=== PATIENT | female | born 2000 | race Caucasian/White ===

== ENCOUNTER 2019-12-14 18:51 | Emergency (ER) | payer OTHER, SELFPAY ==
--- NOTE | ~2019-12-14 | CT_ITS ---
EXAMINATION: CT abdomen pelvis w con EXAM DATE: 12/14/2019 20:37 INDICATION: Left lower quadrant pain. TECHNIQUE: Spiral CT of the abdomen and pelvis was performed following intravenous injection of 100 m L Omnipaque 350. Axial, coronal and sagittal images were reviewed. The dose-length product (DLP) fo r this examination was 180.08 mGy-cm. The exposure was tailored according to patient size (auto mA e xposure control), and iterative reconstruction (ASIR) was used as additional dose reduction technique . There is no prior study for comparison. FINDINGS: Mild nonspecific periportal edema. The liver, spleen, adrenal glands and pancreas are unre markable. Gallbladder is unremarkable. No biliary obstruction. Several small regions of heterogene ous bilateral renal cortical enhancement, correlate with urinalysis for possible bilateral pyelonephr itis. No hydronephrosis. Enlarged left gonadal vein, possible pelvic congestion syndrome. The bladd er is unremarkable. There is no retroperitoneal or pelvic lymphadenopathy. The appendix is normal. The stomach and small bowel are unremarkable. There is expected amount of c olonic stool. No free intraperitoneal gas. The heart is normal in size. There are no pericardial or pleural effusions. The lung bases are unremarkable. There is mild thoracolumbar dextroscoliosis . IMPRESSION: 1. Small regions of bilateral heterogeneous renal cortical enhancement, possible pyelonephritis. Vasc ulopathy less likely. Correlate with urinalysis. 2. Mild nonspecific periportal edema. Reviewed, dictated and finalized at location A. IMPRESSION: 1. Small regions of bilateral heterogeneous renal cortical enhancement, possibl e pyelonephritis. Vasculopathy less likely. Correlate with urinalysis. 2. Mild nonspecific periportal edema.
[2019-12-14 18:57] VITALS: BP 135/72; RESP 18; TEMP 37.7; O2SAT 98
--- NOTE | 2019-12-14 19:21 | ED.ABDPAIN ---
HPI - Abdominal Pain General Chief Complaint: Abdominal Pain Stated Complaint: abd pain Time Seen by Provider: 12/14/19 19:14 History of Present Illness HPI narrative: Patient presents with her boyfriend for left-sided abdominal pain since 3 AM. She has never had pain like this before. She is holding her left flank with her left hand. She says she has no pain if she holds perfectly still but it is a 7-8 if she is walking. She had her tonsils out a week ago, and had a temperature of 102 at home before arrival. She has nausea and a poor appetite, but no vomiting diarrhea or constipation. 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 She does not smoke, drinks very little, and does not do drugs. Her only surgery is her tonsillectomy. MD elicited complaint: abdominal pain and flank pain Pertinent past history: none Onset (ago): hour(s) Pain Consistency: intermittent Location: LLQ Severity: moderate Radiation: none Migration to: no migration Exacerbating factors: movement Relieving factors: rest Associated symptoms: nausea and fever Treatments prior to arrival: other (None) Related Data Patient : No Home Medications Medication Instructions Recorded Confirmed oxycodone 5 mg PO Q4-6H PRN 12/14/19 12/14/19 Allergies Allergy/AdvReac Type Severity Reaction Status Date / Time No Known Allergies Allergy Verified 08/17/19 18:39 Review of Systems Review of Systems: Narrative: CONSTITUTIONAL: Denies chills, or sweats. EYES: Denies visual changes, redness, or discharge. ENT: Denies rhinorrhea, congestion, or otalgia. She still has a sore throat from her recent tonsillectomy. CARDIOVASCULAR: Denies chest pain, palpitations, or edema. RESPIRATORY: Denies cough or dyspnea. GASTROINTESTINAL: Denies vomiting, or diarrhea. GENITOURINARY: Denies dysuria or hematuria. SKIN: Denies rash or itching. MUSCULOSKELETAL: Denies back pain, joint pain, or myalgia. NEUROLOGIC: Denies headache, numbness, or weakness. PSYCHIATRIC: Denies anxiety or depression. All systems reviewed & are unremarkable except as noted in HPI and below Constitutional: Constitutional: Reports fever(s) Gastrointestinal: Gastrointestinal: Reports abdominal pain and Reports nausea Genitourinary: Genitourinary: Reports no additional female genitourinary complaints Integumentary/Breasts: Comments: Previous breast infection has resolved. [facility] Past Medical History Medical History History of mastitis Surgical History Surgical History History of tonsillectomy Social History Social History (Updated 12/14/19 @ 19:25 by Anna Trujillo MD) Smoking status: Never smoker Alcohol intake: current Substance use: never Gender identity (if verbalized by the patient): Female Exam Narrative: Exam Narrative: GENERAL: Well-appearing, well-nourished, and in no acute distress. HEAD: Normocephalic, atraumatic. EYES: PERRLA and EOMI. ENT: Nares clear, no rhinorrhea or epistaxis. Mucous membranes moist. NECK: Supple. CHEST: Clear to auscultation. No respiratory distress. HEART: Regular rate and rhythm. No murmur heard. Normal peripheral pulses. ABDOMEN: Soft, nontender, nondistended, normal active bowel sounds. EXTREMITIES: Normal range of motion. No edema. SKIN: Warm, dry, no rash. NEURO: No focal deficits. Alert and oriented x3. PSYCH: Normal mood and affect. Course Reevaluation(s) Reevaluation #1: Went back in to see the patient and her boyfriend at 2056. She is feeling better and ready to go home. I recommended that she drink more water and car pick up driver her antibiotics tomorrow. She is still breast-feeding her 6-month-old. We will give Macrobid 100 mg twice daily which is safe with breast-feeding. Date: 12/14/19 Time: 20:57 Vital Signs Vital signs: Vital Signs Temperature 99.8 F H 12/14/19 18:57 Respiratory Rate 18
[2019-12-14] MEDS: SODIUM CHLORIDE 0.9% IV 1,000 ML 500 ML IV CONT (19:27)
[2019-12-14 20:04] LABS: Basophils Percent Auto 0.4 % (0.2-1.2); Hematocrit 35.5 % (37.0-47.0); Hemoglobin 11.9 g/dL (12.0-15.0); Immature Granulocyte Absolute 0.03 K/mm3 (0.00-0.031); Immature Granulocyte Percent A 0.3 % (0-0.5); Lymphocytes Absolute Auto 1.03 K/mm3 (0.9-3.2); Lymphocytes Percent Auto 10.2 % (18.3-44.2); Mean Corpuscular HGB Conc 33.5 g/dl (32-36); Mean Corpuscular Hemoglobin 30.6 pg (26-34); Mean Corpuscular Volume 91.3 fl (80-100); Mean Platelet Volume 9.8 fl (7.4-10.4); Monocytes Absolute Auto 0.6 K/mm3 (0.1-0.6); Monocytes Percent Auto 6.1 % (2.6-8.5); Neutrophils Absolute Auto 8.4 K/mm3 (1.3-6.7); Platelet Count Result 235 k/mm3 (150-375); Red Blood Count 3.89 M/mm3 (4.2-5.4); Red Cell Distribution Width 12.9 % (11.5-14.5); White Blood Count 10.1 K/mm3 (4.5-10.0)
[2019-12-14 20:11] LABS: Add Urine Microscopic? YES; Appearance Urine Cloudy (Clear); Bacteria Urine 2+ /hpf; Bilirubin Urine Negative (Negative); Blood Urine Negative (Negative); Color Urine Yellow (Yellow); Glucose Urine UA Negative (Negative); Ketones Urine 1+ mg/dL (Negative); Leukocyte Esterase Ur 3+ LEU/UL (Negative); Mucus Urine Heavy /lpf; Nitrate Urine Positive (Negative); Protein Urine 1+ mg/dL (Negative); Specific Grav Ur 1.015 (1.001-1.035); Squamous Epithelial Cell Urine Few /hpf (Few); Urobilinogen Urine Negative mg/dL (<2.0); WBC Urine >75 /hpf
[2019-12-14 20:17] LABS: Alanine Aminotransferase 10 U/L (4-35); Albumin Level 4.4 g/dL (3.5-5.1); Alkaline Phosphatase 105 U/L (38-126); Aspartate Amino Transferase 19 U/L (14-36); Bilirubin,Total 0.8 mg/dL (0.2-1.3); Blood Urea Nitrogen 10 mg/dL (7-17); Calcium 8.6 mg/dL (8.4-10.2); Carbon Dioxide 27 mmol/L (22-30); Chloride 99 mmol/L (98-107); Estimated CRCL calculation 90 ml/min; Estimated Glomerular Filt Rate > 60; Glucose 102 mg/dL (65-105); Lipase 47 U/L (23-300); Potassium 3.2 mmol/L (3.4-5.0); Sodium 134 mmol/L (137-145)
== END 2019-12-14 21:19 | disposition home or self-care (01) ==
PROVIDERS: Emergency Medicine Emergency Medical Services; Emergency Provider Emergency Medicine; PCP Obstetrics & Gynecology
DX: N12 Tubulo-interstitial nephritis, not specified as acute or chronic (principal)
CPT/HCPCS: 36415; 74177; 80053; 81001; 81025; 83690; 85025; 87077; 87086; 87088; 87186; 96361; 96365; 99284; J0696; J7030; Q9967

== ENCOUNTER 2023-06-25 11:11 | Emergency (ER) | payer OTHER, MEDICAID, SELFPAY ==
[2023-06-25 11:28] VITALS: BP 107/62; PULSE 120; RESP 16; TEMP 38; O2SAT 99
--- NOTE | 2023-06-25 11:39 | ED.SKABFB ---
HPI - Skin/Abscess/Foreign Bdy General Chief complaint: Skin/Abscess/Foreign Body Stated complaint: breast issue Time Seen by Provider: 06/25/23 11:39 Source: patient Mode of arrival: ambulatory Limitations: no limitations History of Present Illness HPI narrative: 22 y/o female presented for c/o redness and tenderness to left breast for 2 days. Endorses hx mastitis and states this feels similar. Pt is 15mo old and denies any other complications. 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 Endorses nausea. Denies draiange, sob, wheezing, cp, palpitations, vomiting or fever. Related Data Allergies Allergy/AdvReac Type Severity Reaction Status Date / Time No Known Allergies Allergy Verified 06/25/23 11:14 Review of Systems Review of Systems: CONSTITUTIONAL: Denies body aches, fever, chills, or sweats. EYES: Denies visual changes, redness, or discharge. ENT: Denies rhinorrhea, congestion CARDIOVASCULAR: Denies chest pain, palpitations, or edema. RESPIRATORY: Denies cough or dyspnea. GASTROINTESTINAL: Denies abdominal pain, nausea, vomiting, or diarrhea. SKIN: reports red, warm, tender left breast MUSCULOSKELETAL: Denies back pain, joint pain, or myalgia. NEUROLOGIC: Denies headache, numbness, tingling, or weakness. [facility] Past Medical History Medical History (Updated 06/25/23 @ 12:49 by Lamar Garcia, MARTÍNEZ) No pertinent past medical history Comments At time of signature, I have reviewed and agree with nursing past medical, surgical, social and family history unless otherwise noted. Please see nursing chart for further information. There is no relevant family history pertinent to the presenting complaint Exam Narrative: GENERAL: Well-appearing HEAD: Normocephalic, atraumatic. EYES: conjunctivae clear, and EOMI. ENT: Mucous membranes moist. Oropharynx without edema, erythema or lesions. NECK: Supple. No lymphadenopathy CHEST: Clear to auscultation. HEART: Regular rate and rhythm. SKIN: Warm, dry. Left lateral breast with mild erythema, warmth, and tenderness; not circumferential. c/w mastitis. No induration, active drainage, or fluctuance. Skin texture and nipple/areola appear normal. NEURO: Alert and oriented x3. Chest: Chest/axillae images: 1. area of erythema, warmth, and tenderness Course Course Emergency Course: Patient is aware of diagnosis, understands and agrees to treatment plan. Anticipatory guidance given. Patient agrees to follow-up as directed and is aware of reasons to seek care at the emergency department. Portions of this record may have been created with voice recognition software Level of Care: Express Care Visit Vital Signs Vital signs: Vital Signs Temperature 100.4 F H 06/25/23 11:28 Pulse Rate 120 H 06/25/23 11:28 Respiratory Rate 16 06/25/23 11:28 Blood Pressure 107/62 06/25/23 11:28 Pulse Oximetry 99 06/25/23 11:28 Oxygen Delivery Room Air 06/25/23 11:28 Temperature 100.4 F H 06/25/23 11:28 Pulse Rate 120 H 06/25/23 11:28 Respiratory Rate 16 06/25/23 11:28 Blood Pressure 107/62 06/25/23 11:28 Pulse Oximetry 99 06/25/23 11:28 Oxygen Delivery Room Air 06/25/23 11:28 Reviewed MDM - Skin/Abscess/Foreign Bdy MDM Narrative Medical decision making narrative: Discussed physical exam findings c/w mastitis. Advised supportive measures and signs/symptoms to go to the ER. Pt is appropriate for outpt treatment and f/u. Instructed patient to go to nearest ER immediately for any worsening symptoms including but not limited to: fever, pain, redness, trouble breathing, or any symptoms concerning to the patient. Differential Diagnosis Differential diagnosis: Likely abscess of skin or subcutaneous tissue, urticaria, herpes zoster, cellulitis and contact dermatitis Discharge Plan Discharge Clinical Impression: Mastitis Patient Disposition: Home, Self-Care Condition: Stable Instructions: Antibiotic Form, Mastitis
== END 2023-06-25 12:04 | disposition home or self-care (01) ==
PROVIDERS: Emergency Provider Nurse Practitioner Family; PCP Family Medicine
DX: N61.0 Mastitis without abscess (principal)
CPT/HCPCS: 99203; G0463

== ENCOUNTER 2024-02-09 16:08 | Observation (INO) | payer OTHER, MEDICAID, SELFPAY ==
--- NOTE | ~2024-02-09 | CT_ITS ---
EXAMINATION: CT abdomen pelvis w con DATE: 02/09/2024 18:18 INDICATION: flank pain, UTI TECHNIQUE: Computed tomography (CT) of the abdomen and pelvis was performed with 100 mL Omnipaque-350 intravenous contrast. Automated exposure control and iterative reconstruction technique were employe d. The dose-length product was 194.78 mGy-cm. COMPARISON: 12/14/2019. FINDINGS: Lower thorax: Unremarkable Liver: Mild periportal edema, nonspecific, less prominent than in the prior examination. Biliary/Gallbladder: Gallbladder is normal. No bile duct dilation. Pancreas: No mass or duct dilation. Spleen: Normal. Adrenals:No mass. Kidneys: 1.6 cm ill-defined left upper pole hypodensity with a 9 mm central fluid density component. No hydronephrosis. Mild urothelial hyperenhancement on the left. GI tract: Mild distal esophageal and gastric wall edema. No small or large bowel dilation. The append ix is not confidently visualized, no inflammatory process detected in the right lower quadrant. Mesentery/Peritoneum: No ascites, mass, or free air. Retroperitoneum: No mass. Pelvis: Normal urinary bladder, uterus, and bilateral ovaries. Small volume free pelvic fluid, in phy siologic range. Soft Tissues: Soft tissues and body wall unremarkable. Bones: No acute osseous finding. IMPRESSION: Mild distal esophagitis/gastritis. Findings concerning for ascending urinary tract infection on the left with a 1.6 cm renal abscess. Reviewed, dictated and finalized at location K. IMPRESSION: Mild distal esophagitis/gastritis. Findings concerning for ascending urinary tract infection on the left with a 1. 6 cm renal abscess.
[2024-02-09 16:10] VITALS: BP 104/63; PULSE 102; RESP 20; TEMP 37.6; O2SAT 98
[2024-02-09 17:17] LABS: Basophils Percent Auto 0.3 % (0.2-1.2); Eosinophils Percent Auto 0.1 % (0-4.4); Hematocrit 35.9 % (37.0-47.0); Hemoglobin 12.2 g/dL (12.0-15.0); Immature Granulocyte Absolute 0.02 K/mm3 (0.00-0.031); Immature Granulocyte Percent A 0.2 % (0-0.5); Lymphocytes Percent Auto 5.8 % (18.3-44.2); Mean Corpuscular Hemoglobin 32.2 pg (26-34); Mean Corpuscular Volume 94.7 fl (80-100); Mean Platelet Volume 9.6 fl (7.4-10.4); Monocytes Absolute Auto 0.5 K/mm3 (0.1-0.6); Monocytes Percent Auto 5.4 % (2.6-8.5); Neutrophils Absolute Auto 7.6 K/mm3 (1.3-6.7); Neutrophils Percent Auto 88.2 % (45.5-73.1); Platelet Count Result 177 k/mm3 (150-375); Red Blood Count 3.79 M/mm3 (4.2-5.4); Red Cell Distribution Width 11.9 % (11.5-14.5); White Blood Count 8.7 K/mm3 (4.5-10.0)
[2024-02-09 17:28] LABS: Alanine Aminotransferase 13 U/L (6-35); Albumin Level 4.5 g/dL (3.5-5.1); Alkaline Phosphatase 64 U/L (38-126); Anion Gap 10 mmol/L (4-12); Appearance Urine Turbid (Clear); Aspartate Amino Transferase 22 U/L (14-36); Bacteria Urine 4+ /hpf; Bilirubin Urine Negative (Negative); Bilirubin,Total 0.9 mg/dL (0.2-1.3); Blood Urea Nitrogen 20 mg/dL (7-17); Blood Urine 3+ (Negative); Calcium 8.8 mg/dL (8.4-10.2); Carbon Dioxide 26 mmol/L (22-30); Chloride 99 mmol/L (98-107); Color Urine Yellow (Yellow); Estimated CRCL calculation 100 ml/min; Estimated Glomerular Filt Rate > 60; Glucose 95 mg/dL (65-110); Glucose Urine UA Negative (Negative); Ketones Urine 3+ mg/dL (Negative); Leukocyte Esterase Ur 3+ LEU/UL (Negative); Lipase 38 U/L (23-300); Need Manual Microscopic Reviewed; Nitrate Urine Positive (Negative); Protein Urine 2+ mg/dL (Negative); RBC Urine 0-2 /hpf (0-2); Sodium 135 mmol/L (137-145); Specific Grav Ur 1.018 (1.001-1.035); Squamous Epithelial Cell Urine None Seen /hpf (Few); WBC Urine >100 /hpf (0-3)
[2024-02-09 17:29] LABS: Add Urine Microscopic? YES
--- NOTE | 2024-02-09 17:52 | ED.ABDPAIN ---
HPI - Abdominal Pain General Chief Complaint: Abdominal Pain Stated Complaint: double kidney infection Time Seen by Provider: 02/09/24 17:13 Source: patient Mode of arrival: ambulatory Limitations: no limitations History of Present Illness HPI narrative: This is a 23-year-old female that presents to the emergency department for left flank pain. Ongoing since yesterday. She took Aleve this morning with little relief. She was concerned she may have a kidney infection. Denies fevers, vomiting, dysuria, hematuria. Related Data Home Medications Medication Instructions Recorded Confirmed oxycodone 5 mg capsule 5 mg PO Q4-6H PRN Pain 12/14/19 12/14/19 Allergies Allergy/AdvReac Type Severity Reaction Status Date / Time No Known Allergies Allergy Verified 10/17/23 13:49 Review of Systems Review of Systems: CONSTITUTIONAL: Denies fever GASTROINTESTINAL: Reports flank pain. Denies nausea, vomiting, or diarrhea. GENITOURINARY: Denies dysuria or hematuria. All systems reviewed & are unremarkable except as noted in HPI and below PMFSH Past Medical History Medical History (Updated 02/09/24 @ 21:37 by Moni Cid PA-C) History of mastitis Surgical History Surgical History (Updated 10/17/23 @ 13:49 by Corinna Gray) History of tonsillectomy Social History Social History (System 10/17/23 @ 13:49 by Corinna Gray) Smoking status: Never smoker Alcohol intake: current Substance use: never Gender identity (if verbalized by the patient): Female Exam Narrative: GENERAL: Well-appearing, well-nourished, and in no acute distress. HEAD: Normocephalic, atraumatic. EYES: EOMI. CHEST: Clear to auscultation. No respiratory distress. No wheezes rales or rhonchi HEART: Regular rate and rhythm. No murmur heard. Normal peripheral pulses. ABDOMEN: Soft, nontender, nondistended, normal active bowel sounds. Left CVA tenderness EXTREMITIES: Normal range of motion. No edema. SKIN: Warm, dry, no rash. NEURO: No focal deficits. Alert and oriented x3. PSYCH: Normal mood and affect Course Course Emergency Course: Patient updated on her workup and recommendation for admission Consultations Consultation #1: Spoke with Urology, Dr. Colbert about patient and workup. Reports abscess is too small for intervention, but they will consult Date: 02/09/24 Consultation #2: Spoke with hospitalist about patient and workup who accepts admission Date: 02/09/24 Vital Signs Vital signs: Vital Signs Temperature 99.7 F H 02/09/24 16:10 Pulse Rate 102 H 02/09/24 16:10 Respiratory Rate 20 02/09/24 16:10 Blood Pressure 104/63 02/09/24 16:10 Pulse Oximetry 98 02/09/24 16:10 Oxygen Delivery Room Air 02/09/24 16:10 Temperature 98.4 F 02/09/24 21:08 Pulse Rate 83 02/09/24 21:08 Respiratory Rate 16 02/09/24 21:08 Blood Pressure 127/81 02/09/24 21:08 Pulse Oximetry 99 02/09/24 21:08 Oxygen Delivery Room Air 02/09/24 16:10 MDM - Abdominal Pain MDM Narrative Medical decision making narrative: Patient presents to the emergency department for left-sided flank pain. Ongoing since yesterday. Borderline febrile and tachycardic upon arrival, this normalized with IV fluid hydration and antipyretic. Cbc without leukocytosis. Metabolic panel without concerning findings. Urine without evidence of infection. This will be sent for culture. Patient started on IV antibiotics and blood cultures sent. CT abdomen and pelvis shows mild esophagitis/gastritis. Also findings concerning for an ascending urinary tract infection with a renal abscess. Spoke with Urology, Dr. Colbert about patient and workup. Reports abscess is too small for intervention, but they will consult. Spoke with hospitalist about patient and workup who accepts admission. Patient was updated on her workup and agrees with plan of care Differential Diagnosis Differential diagnosis: Likely calculus of kidney, constipat
[2024-02-09] MEDS: ACETAMINOPHEN 500 MG TABLET 1000 MG PO (17:57)
[2024-02-09] MEDS: SODIUM CHLORIDE 0.9% IV 1,000 ML 999 ML IV CONT ×2 (17:58→20:38)
[2024-02-09 19:11] LABS: Lactic Acid Reflex 0.6 mmol/L (0.7-2.0)
[2024-02-09 21:08] VITALS: BP 127/81; PULSE 83; RESP 16; TEMP 36.9; O2SAT 99
--- NOTE | 2024-02-09 21:33 | PM.IMHP ---
H&P: HPI History of Present Illness Date/Time: 02/09/24 23:33 Chief Complaint: Left flank Narrative: 23-year-old female with a past medical history of prior urinary tract infections who presented to the ER with left flank pain it started 02/08/2024. The patient reports that the week before she was having some urinary urgency and some increase in frequency. She was not having any dysuria. She was concerned that she may have a UTI. But after a couple of days symptoms seem to go away so she thought she was okay. Then yesterday she began having anterior abdominal pain that was 10/10 intensity and worse with deep breathing or movement. The pain was sharp and would radiate through to her back. She does have CVA tenderness on exam. She also reports that if her abdomen is palpated anywhere on her abdomen the pain radiates to her right anterior abdomen in through to her back. She was chills and subjective fever. She was having some nausea but no vomiting. She reports generalized poor oral intake over the last 2 days. She does not always practice post coital voiding. Her last urinary tract infection was back in 2019. She does not have frequent urinary tract infections. CT scan of the abdomen pelvis with contrast performed in the ER demonstrated findings concerning for ascending urinary tract infection with an 1.6 cm left renal abscess. Incidental findings noted of mild distal esophagitis and gastritis. On further questioning patient states that she has been having some reflux symptoms for a few days but in general does not have heartburn symptoms. She did take 2 tablets of naproxen to try to help with her symptoms but when her pain was unrelieved she decided come to the ER. Review of Systems Review of Systems: 10 systems were reviewed with pertinent positives and negatives per HPI. Except as documented in the HPI, all other systems were reviewed and are negative. [facility] Past Medical History Medical History History of mastitis Surgical History Surgical History History of tonsillectomy Family History Family History Mother Hypertension Kidney stones Father Diabetes mellitus Social History Social History (Updated 02/10/24 @ 04:29 by Bailey J. Hopen, DO) Social History: The patient is lives with her boyfriend and her 3 children. She has 2 boys and a girl. Her children her age is 8 years old, 4 years old and 1-year-old (as of January 2024). She reports that she is a lifelong nonsmoker. She very rarely drinks alcohol and only small amounts. She denies any illicit substance use. 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 Code status: Full code Surrogate decision maker: Mom Smoking status: Never smoker Alcohol intake: current Substance use: never Do You Feel Safe in your Home?: Yes Lack of Transportation: No Lack of Food: Never True Current Housing: I Have Housing Concerned About Future Housing: No Difficulty Paying Gas/Electric Bills: No Difficulty Paying for Meds: No Currently Unemployed: No Education: Don't Know Difficulty w/ Childcare or Family Care: No Gender identity (if verbalized by the patient): Female Spiritual care concerns: No Meds Home Medications and Allergies Home Medications Medication Instructions Recorded Confirmed Type No Home Medications 02/09/24 02/09/24 History Allergies Allergy/AdvReac Type Severity Reaction Status Date / Time No Known Allergies Allergy Verified 10/17/23 13:49 Vital Signs Vital Signs - 24 hr 02/09/24 16:10 02/09/24 21:08 Temperature 99.7 F H 98.4 F Pulse Rate 102 H 83 Respiratory Rate 20 16 Blood Pressure 104/63 127/81 Pulse Oximetry 98 99 Oxygen Delivery Room Air Exam Narrative: Weight 52 kg BMI 20.3 Const: Other: No acute distress, well
--- NOTE | 2024-02-09 21:34 | ADMGEN ---
This patient, Rebecca Reddy, was admitted to 3 Med Surg Room 303-01. Patient/family oriented to hospital policies and general routines including ID bracelet, bed and alarms, visiting hours, pain management, procedures, bathroom and other care routines, personal items, smoking policy, room service/diet, and visiting hours. Information on how to activate the Rapid Response Team has been discussed. Patient/Family are encouraged to report perceived risks to care and to ask questions if they do not understand what they are told or what they should do.
[2024-02-09] MEDS: SODIUM CHLORIDE 0.9% IV 1,000 ML 125 ML IV CONT (21:45)
[2024-02-09 21:52] VITALS: BP 106/68; PULSE 95; RESP 16; TEMP 36.4; O2SAT 100
[2024-02-10] MEDS: KETOROLAC 15 MG/ML VIAL (*BKC) IV PUSH ×4 (00:05→18:24)
[2024-02-10] MEDS: ONDANSETRON INJ 4 MG/2 ML VIAL IV PUSH ×4 (00:05→18:24)
[2024-02-10 05:35] VITALS: BP 108/64; PULSE 82; RESP 16; TEMP 36.7; O2SAT 100
[2024-02-10] MEDS: SODIUM CHLORIDE 0.9% IV 1,000 ML 125 ML IV CONT ×3 (05:50→21:12)
[2024-02-10 06:36] LABS: Basophils Percent Auto 0.3 % (0.2-1.2); Hematocrit 32.7 % (37.0-47.0); Hemoglobin 10.7 g/dL (12.0-15.0); Immature Granulocyte Absolute 0.04 K/mm3 (0.00-0.031); Immature Granulocyte Percent A 0.5 % (0-0.5); Lymphocytes Absolute Auto 0.69 K/mm3 (0.9-3.2); Lymphocytes Percent Auto 9.3 % (18.3-44.2); Mean Corpuscular HGB Conc 32.7 g/dl (32-36); Mean Corpuscular Hemoglobin 31.8 pg (26-34); Mean Platelet Volume 9.9 fl (7.4-10.4); Monocytes Absolute Auto 0.4 K/mm3 (0.1-0.6); Neutrophils Absolute Auto 6.3 K/mm3 (1.3-6.7); Neutrophils Percent Auto 84.9 % (45.5-73.1); Platelet Count Result 153 k/mm3 (150-375); Red Blood Count 3.37 M/mm3 (4.2-5.4); Red Cell Distribution Width 11.9 % (11.5-14.5); White Blood Count 7.4 K/mm3 (4.5-10.0)
[2024-02-10 06:42] LABS: Anion Gap 10 mmol/L (4-12); Blood Urea Nitrogen 15 mg/dL (7-17); Calcium 7.5 mg/dL (8.4-10.2); Carbon Dioxide 19 mmol/L (22-30); Chloride 106 mmol/L (98-107); Estimated CRCL calculation 100 ml/min; Estimated Glomerular Filt Rate > 60; Glucose 88 mg/dL (65-110); Potassium 3.7 mmol/L (3.4-5.0); Sodium 135 mmol/L (137-145)
--- NOTE | 2024-02-10 08:40 | PM.IMPN ---
Progress Note: A&P Assessment and Plan (1) Pyelonephritis: Code(s): N12 - Tubulo-interstitial nephritis, not specified as acute or chronic Status: Acute Assessment and Plan: 02/10/24: CT of the abdomen pelvis shows concerns for ascending urinary tract infection along with a left 1.6 cm renal abscess UA showing 2+ urine protein, 3+ urine ketone, 3+ urine blood, positive nitrate, 3+ urine leukocytes, greater than 100 urine wbc's, 4+ urine bacteria. Urine and blood cultures obtained and are pending Continue Rocephin Continue IV fluids Patient given 2 L of normal saline while in the ED Continue pain and nausea control Last urine culture was reviewed and showed E coli which was pansensitive (2) Abscess of left kidney: Code(s): N15.1 - Renal and perinephric abscess Status: Acute Assessment and Plan: 02/10/24: CT showing a 1.6 cm renal abscess Continue IV antibiotic Urology consulted and recommends conservative treatment with IV antibiotics followed by a follow-up CT in a few weeks. Time Spent With Patient Time with patient: Greater than 35 minutes Subjective Date/time seen: 02/10/24 08:40 Interval history: Interval history: This is a 23-year-old female who presented to the hospital on 02/09/2024 with complaints of left flank pain. Abdomen pelvis CT showed mild distal esophagitis/gastritis CT, findings concerning for ascending urinary tract infection on the left with a 1.6 cm renal abscess. Initial labs showed white blood cell count of 8.7, sodium 135, creatinine 0.6. UA showed 2+ urine protein, 3+ urine ketones, 3+ urine blood, positive nitrate, 3+ leukocyte, greater than 100 urine WBC, 4+ urine bacteria. Blood and urine cultures were obtained and are pending. Urine culture from 12/14/2019 showed E coli which was pansensitive. Patient was given 2 L of normal saline, Tylenol, and Rocephin while in the ED. Urology seen patient and recommended treating the renal abscess conservatively with a follow-up CT scan after her antibiotics. 02/10/24: Patient denies any fever, chills, nausea, vomiting, chest pain, shortness a breath. Patient endorses abdominal pain which is worse whenever she is moving around in the bed she rates at about 10/10. Whenever she is at rest she does not have pain. Review of Systems Review of Systems: All systems reviewed & are unremarkable except as noted in HPI and below Constitutional: Constitutional: Reports as per HPI and Reports no additional constitutional complaints Eyes: Eyes: Reports as per HPI and Reports no additional eye complaints ENT: Reports system reviewed and no additional complaints, except as documented and Reports as per HPI Cardiovascular: Cardiovascular: Reports as per HPI and Reports no additional cardiovascular complaints Respiratory: Respiratory: Reports as per HPI and Reports no additional respiratory complaints Gastrointestinal: Gastrointestinal: Reports as per HPI and Reports no additional gastrointestinal complaints Genitourinary: Genitourinary: Reports no additional female genitourinary complaints and Reports as per HPI Musculoskeletal: Musculoskeletal: Reports no additional musculoskeletal complaints and Reports as per HPI Integumentary/Breasts: Skin/Breast: Reports system reviewed and no additional complaints, except as docu and Reports as per HPI Neurologic: Reports system reviewed and no additional complaints, except as documented and Reports as per HPI Psychiatric: Psychiatric: Reports no additional psychiatric complaints and Reports as per HPI Exam Narrative: General: In no acute distress, well nourished Head: atraumatic, no encephalopathy Eyes: EOMI, PERRLA, sclera clear ENT: moist mucous membranes, nasal passages clear Neck: supple, no JVD, no adenopathy, trachea midline Cardiac: Normal S1 and S2. RRR, No murmur, gallops or friction rubs, peripheral pulses intact. Respiratory: Lungs clear to auscultation, no adventitiou
[2024-02-10 08:48] VITALS: O2SAT 99
[2024-02-10] MEDS: FAMOTIDINE 20 MG TABLET PO ×2 (08:48→21:24)
[2024-02-10] MEDS: ENOXAPARIN 40 MG/0.4 ML SYRINGE SUB-Q (08:48)
--- NOTE | 2024-02-10 09:55 | WPDURCON ---
Assessment and Plan Assessment and plan (1) Pyelonephritis: Code(s): N12 - Tubulo-interstitial nephritis, not specified as acute or chronic Status: Acute Assessment and Plan: Continue empiric antibiotics while awaiting urine culture results. Continue gentle IV fluid rehydration. Monitor fever curve and WBC. (2) Abscess of left kidney: Code(s): N15.1 - Renal and perinephric abscess Status: Acute Assessment and Plan: Noted to have small, 1.6 cm abscess of left kidney. Too small to drain. Will continue to manage conservatively with IV antibiotics while awaiting culture results. Will need repeat CT scan following treatment of infection to ensure resolution of abscess in about 4 weeks. Urology Consult Note HPI Date Seen: 02/10/24 Requesting Physician: Bailey Torrez DO Primary Care Provider: Luna Timmons, Consult Narrative Narrative: Rebecca Reddy is a 23 year old female with history of pyelonephritis 4 years prior who is being seen in consultation for pyelonephritis with left renal abscess. Patient reports that 2 days ago she had sudden onset of severe left flank pain. A couple of days prior to that, she felt that she might have urinary tract infection as she felt that her urine was not flowing as well. She did not have dysuria or hematuria. She denies fever, chills, nausea, vomiting. Upon arrival to the emergency department, she was mildly tachycardic with additional vital signs stable, WBC within normal limits at 8.7, creatinine 0.6, UA grossly abnormal with positive nitrites, leukocytes, blood, and WBC. A CT of the abdomen/pelvis showed finding since pyelonephritis and 1.6 cm left renal abscess. At the time of my evaluation, she is feeling better. Her pain is controlled at this time. She is tolerating her diet and reports improved appetite. So far throughout admission, she had a single low-grade temperature of 100.4?, otherwise has remained afebrile. She reports that her episode of pyelonephritis several years ago resolved promptly with antibiotics and she has not had any subsequent urologic issues. Reports very rare urinary tract infections and she believes her last 1 was about 4 years ago when she had the kidney infection. Review of Systems Review of Systems: All systems reviewed & are unremarkable except as noted in HPI and below PMFSH Past Medical History Medical History (Updated 02/10/24 @ 09:58 by Dianelys Veras PA-C) History of mastitis History of pyelonephritis Surgical History Surgical History History of tonsillectomy Family History Family History Mother Hypertension Kidney stones Father Diabetes mellitus Social History Social History (Updated 02/10/24 @ 04:29 by Bailey Torrez DO) Social History: The patient is lives with her boyfriend and her 3 children. She has 2 boys and a girl. Her children her age is 8 years old, 4 years old and 1-year-old (as of January 2024). She reports that she is a lifelong nonsmoker. She very rarely drinks alcohol and only small amounts. She denies any illicit substance use. 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 Code status: Full code Surrogate decision maker: Mom Smoking status: Never smoker Alcohol intake: current Substance use: never Do You Feel Safe in your Home?: Yes Lack of Transportation: No Lack of Food: Never True Current Housing: I Have Housing Concerned About Future Housing: No Difficulty Paying Gas/Electric Bills: No Difficulty Paying for Meds: No Currently Unemployed: No Education: Don't Know Difficulty w/ Childcare or Family Care: No Gender identity (if verbalized by the patient): Female Spiritual care concerns: No Meds Home Medications and Allergies Home Medications Medication Instructions Recorded Confirmed Type No
[2024-02-10 14:00] VITALS: BP 116/65; PULSE 84; RESP 16; TEMP 36.6; O2SAT 98
[2024-02-10] MEDS: ACETAMINOPHEN 500 MG TABLET PO (14:43)
[2024-02-10 21:52] VITALS: BP 106/72; PULSE 78; RESP 16; TEMP 36.6; O2SAT 100
[2024-02-11 05:28] VITALS: BP 104/72; PULSE 72; RESP 16; TEMP 36.6; O2SAT 100
[2024-02-11 08:44] LABS: Basophils Percent Auto 0.2 % (0.2-1.2); Eosinophils Absolute Auto 0.1 K/mm3 (0-0.3); Eosinophils Percent Auto 1.2 % (0-4.4); Hematocrit 31.6 % (37.0-47.0); Hemoglobin 10.4 g/dL (12.0-15.0); Immature Granulocyte Absolute 0.01 K/mm3 (0.00-0.031); Immature Granulocyte Percent A 0.2 % (0-0.5); Mean Corpuscular HGB Conc 32.9 g/dl (32-36); Mean Corpuscular Hemoglobin 31.6 pg (26-34); Monocytes Absolute Auto 0.5 K/mm3 (0.1-0.6); Monocytes Percent Auto 11.4 % (2.6-8.5); Neutrophils Absolute Auto 2.8 K/mm3 (1.3-6.7); Platelet Count Result 145 k/mm3 (150-375); Red Blood Count 3.29 M/mm3 (4.2-5.4); Red Cell Distribution Width 12.1 % (11.5-14.5); White Blood Count 4.3 K/mm3 (4.5-10.0)
[2024-02-11 08:57] LABS: Alanine Aminotransferase 15 U/L (6-35); Albumin Level 3.2 g/dL (3.5-5.1); Alkaline Phosphatase 54 U/L (38-126); Anion Gap 7 mmol/L (4-12); Aspartate Amino Transferase 22 U/L (14-36); Bilirubin,Total 0.2 mg/dL (0.2-1.3); Blood Urea Nitrogen 9 mg/dL (7-17); Calcium 7.4 mg/dL (8.4-10.2); Carbon Dioxide 23 mmol/L (22-30); Chloride 107 mmol/L (98-107); Estimated CRCL calculation 100 ml/min; Estimated Glomerular Filt Rate > 60; Glucose 97 mg/dL (65-110); Potassium 3.5 mmol/L (3.4-5.0); Sodium 137 mmol/L (137-145)
--- NOTE | 2024-02-11 09:35 | WPDUROPN2 ---
Progress Note: A&P Assessment and Plan (1) Pyelonephritis: Code(s): N12 - Tubulo-interstitial nephritis, not specified as acute or chronic Status: Acute Assessment and Plan: Urine culture with growth of E coli, awaiting sensitivity reports. Continue empiric antibiotics while awaiting final culture data. She remains afebrile and WBC within normal limits. Okay for discharge from a urologic standpoint once cultures are finalized on 2 weeks of culture specific oral antibiotics. (2) Abscess of left kidney: Code(s): N15.1 - Renal and perinephric abscess Status: Acute Assessment and Plan: Noted to have small, 1.6 cm abscess of left kidney. Too small to drain. Will continue to manage conservatively with antibiotics. Will need repeat CT scan following treatment of infection to ensure resolution of abscess in about 4 weeks, will arrange outpatient follow-up Subjective Subjective Date/Time Seen: 02/11/24 09:35 Interval history: Feeling much better today. Has some minimal right flank pain but overall greatly improved. Denies nausea, vomiting, fever, or chills. She is tolerating her diet. Denies dysuria or hematuria. Review of Systems Review of Systems: All systems reviewed & are unremarkable except as noted in HPI and below Exam Narrative: General: Awake, alert, comfortable, no acute distress HEENT: Normocephalic, atraumatic, sclerae anicteric Respiratory: Normal respiratory effort, no accessory muscle use Abdomen: Nondistended, soft, nontender Skin: Normal coloration, warm and dry Neurologic: No focal neuro deficits noted Psychiatric: Appropriate mood and affect, judgment and insight intact Objective Data Vital Signs Vital Signs: Vital Signs - 24 hr 02/10/24 14:00 02/10/24 21:52 02/11/24 05:28 Temperature 97.8 F 97.8 F 97.8 F Pulse Rate 84 78 72 Respiratory Rate 16 16 16 Blood Pressure 116/65 106/72 104/72 Pulse Oximetry 98 100 100 Intake/Output Intake/Output: Intake & Output 02/08/24 02/09/24 02/10/24 02/11/24 23:59 23:59 23:59 23:59 Intake Total 2049 3721.3 400 Balance 2049 3721.3 400 Meds/Results Medications: Active Medications Generic Name Dose Route Start Last Admin Trade Name Freq PRN Reason Stop Dose Admin Acetaminophen 500 mg 02/09/24 23:40 02/10/24 14:43 Acetaminophen 500 Mg Tablet PO 500 mg Q4H PRN Administration Mild Pain (1-3) or Fever Calcium Carbonate 200 mg 02/09/24 23:41 Calcium Carbonate (Tums) 500 Mg (200 Mg Elemental) PO Q6H PRN Indigestion Enoxaparin Sodium 40 mg 02/10/24 09:00 02/10/24 08:48 Enoxaparin 40 Mg/0.4 Ml Syringe SUB-Q 40 mg DAILY JOSE Administration Famotidine 20 mg 02/10/24 09:00 02/10/24 21:24 Famotidine 20 Mg Tablet PO 20 mg Q12HR JOSE Administration Sodium Chloride 1,000 mls @ 125 mls/hr 02/09/24 19:55 02/10/24 21:12 Normal Saline Iv IV CONT 125 mls/hr .Q8H JOSE Administration Ceftriaxone Sodium 1 gm in 50 mls @ 100 mls/hr 02/10/24 18:00 02/10/24 18:24 Rocephin 1 Gm/Ns 50 Ml IVPB 100 mls/hr Q24H JOSE Administration Ketorolac Tromethamine 15 mg 02/09/24 23:40 02/10/24 18:24 Ketorolac 15 Mg/Ml Vial (*Bkc) IV PUSH 15 mg Q6H PRN Administration Pain Rated 4-6 Morphine Sulfate 2 mg 02/09/24 23:40 Morphine Sulfate (*Crx) 2 Mg/Ml Inj IV PUSH Q4H PRN Pain Rated 7-10 Ondansetron HCl 4 mg 02/09/24 23:41 02/10/24 18:24 Ondansetron Inj 4 Mg/2 Ml Vial IV PUSH 4 mg Q6H PRN Administration Nausea And Vomiting Radiology Results: ITS Impressions Abdomen/Pelvis CT 02/09/24 18:22 IMPRESSION: Mild distal esophagitis/gastritis. Findings concerning for ascending urinary tract infection on the left with a 1.6 cm renal abscess. Labs Labs: Laboratory Results - last 24 hr 02/11/24 08:04 WBC 4.3 L RBC 3.29 L Hgb 10.4 L Hct 31.6 L MCV 96.0 MCH 31.6 MCHC 3
--- NOTE | 2024-02-11 10:52 | PM.DS ---
DS: Admitting Diagnosis Discharge Date 02/11/24 Admitting Diagnosis Abscess of left kidney Pyelonephritis DS: Summary Hospital Course Reason for hospitalization: Abscess of left kidney Pyelonephritis Hospital Course: This is a 23-year-old female who presented to the hospital on 02/09/2024 with complaints of left flank pain. Abdomen pelvis CT showed mild distal esophagitis/gastritis CT, findings concerning for ascending urinary tract infection on the left with a 1.6 cm renal abscess. Initial labs showed white blood cell count of 8.7, sodium 135, creatinine 0.6. UA showed 2+ urine protein, 3+ urine ketones, 3+ urine blood, positive nitrate, 3+ leukocyte, greater than 100 urine WBC, 4+ urine bacteria. Blood and urine cultures were obtained and are pending. Urine culture from 12/14/2019 showed E coli which was pansensitive. Patient was given 2 L of normal saline, Tylenol, and Rocephin while in the ED. Urology seen patient and recommended treating the renal abscess conservatively with a follow-up CT scan after her antibiotics. 02/11/24: Urine culture showing E coli. Last urine culture was pansensitive. We switched patient to Cefdinir and will continue to watch cultures. She is stable for discharge at this time. She will need to follow up with PCP in 1 week and get another CT of the abdomen/pelvis in 2 weeks. Final diagnosis: Abscess of left kidney, pyelonephritis Status at Discharge Cognitive/behavioral status at discharge: Alert oriented x4 Functional status at discharge: independent ambulation Overall status at discharge: patient is progressing back to baseline Time Spent with Patient Time attestation: Total time spent providing and/or coordinating discharge services: Time spent: Greater than 30 minutes Exam Narrative: General: In no acute distress, well nourished Cardiac: Normal S1 and S2. RRR, No murmur, gallops or friction rubs, peripheral pulses intact. Respiratory: Lungs clear to auscultation, no adventitious lung sounds, currently on air Gastrointestinal: soft, non-distended, non-tender, normoactive bowel sounds. : voiding without difficulty. Neuro: Alert and oriented x4 DS: Data Data Completed and Pending Completed studies during hospitalization: Abdomen pelvis CT Pending studies at discharge: Urine and blood culture Labs on day of discharge: Labs from last 24 hours 02/11/24 08:04 WBC 4.3 L RBC 3.29 L Hgb 10.4 L Hct 31.6 L MCV 96.0 MCH 31.6 MCHC 32.9 RDW 12.1 Plt Count 145 L MPV 10.0 Immature Gran % (Auto) 0.2 Neut % (Auto) 66.0 Lymph % (Auto) 21.0 [place] % (Auto) 11.4 H Eos % (Auto) 1.2 Baso % (Auto) 0.2 Lymph # (Auto) 0.90 [place] # (Auto) 0.5 Eos # (Auto) 0.1 Baso # (Auto) 0.0 Abs Immat Gran (auto) 0.01 Absolute Neuts (auto) 2.8 Absolute Nucleated RBC 0.000 Nucleated RBC % 0.0 Sodium 137 Potassium 3.5 Chloride 107 Carbon Dioxide 23 Anion Gap 7 BUN 9 D Creatinine 0.60 L Estim Creat Clear Calc 100 Estimated GFR > 60 Glucose 97 Calcium 7.4 L Total Bilirubin 0.2 AST 22 ALT 15 Alkaline Phosphatase 54 Total Protein 6.0 L Albumin 3.2 L Preliminary micro results at discharge 02/09/24 17:08 Urine Culture - Preliminary Urine Clean Catch Escherichia Coli 02/09/24 18:51 Blood Culture - Preliminary Blood 02/09/24 18:51 Blood Culture - Preliminary Blood Procedures/Treatments: None Discharge Plan Discharge Attending physician on discharge: Elysia Mercado Consulting providers: Trever Colbert; Kallie Veloz Discharging Clinician: Kallie Veloz Anticipated Discharge Date/Time: 02/11/24 10:48 Patient Disposition: Home, Self-Care Activity: as tolerated Diet: as tolerated and regular Discharge Instructions: You will need a CT in 2 weeks to recheck your renal abscess that was found on CT scan while inpatient. Finish all your antibiotic even if you are feeling better. I originally told you to star
== END 2024-02-11 11:26 | disposition home or self-care (01) ==
LOC: ANHED 17:30 → ANH3MEDSUR 21:16
PROVIDERS: Emergency Medicine; Nurse Practitioner Acute Care; Admitting Provider Internal Medicine; Emergency Provider Physician Assistant; PCP Family Medicine; Visit Provider General Practice
DX: N15.1 Renal and perinephric abscess (principal); N12 Tubulo-interstitial nephritis, not specified as acute or chronic
CPT/HCPCS: 36415; 74177; 80048; 80053; 81001; 81025; 83605; 83690; 85025; 86140; 87040; 87077; 87086; 87088; 87186; 96361; 96365; 96372; 96374; 96375; 96376; 99285; A9270; G0378; J0696; J1650; J1885; J2405; J7030; Q9967

== ENCOUNTER 2024-03-08 07:35 | Outpatient (CLI) | payer OTHER, MEDICAID, SELFPAY ==
--- NOTE | ~2024-03-08 | CT_ITS ---
CT abdomen pelvis w con Ordering provider: Dianelys Veras PA-C History: 23 years Female with . RENAL ABSCESS . Comparison: February 09, 2024 Technique: CT abdomen and pelvis with IV and without oral contrast. Automated exposure control and it erative reconstruction technique were employed. The dose-length product was 175.85 mGy-cm. 100 MLO Om nipaque 350 was given IV. Findings: VISUALIZED LOWER CHEST: Normal. UPPER ABDOMINAL ORGANS: Liver: Normal. Slightly prominent portal vein. Gallbladder: Normal. Spleen: Normal. Stomach/duodenum: Normal. Pancreas: Normal. Adrenals: Normal. Kidneys: Hypodensity seen in the left kidney upper pole is markedly decreased with very small residua l of 5 mm. scarring in the area is seen. PELVIC ORGANS: The bladder is normal. Uterus: Normal. Bilateral prominent veins are seen in the pelv is suggestive of pelvic congestion syndrome more on the left side. Prominent ovarian veins are seen m ore on the left side. Left ovarian cyst measuring 4.6 x 4.2 cm. BOWEL AND MESENTERY: Colon: No evidence of diverticulitis. No evidence of appendicitis. Small Bowel: Normal. No obstruction. Peritoneum/mesentery: No free air or free fluid. No mesenteric lymphadenopathy. RETROPERITONEUM: Normal aorta. No retroperitoneal lymphadenopathy. MUSCULOSKELETAL: Superficial soft tissues: The superficial soft tissues are normal. Bones: Normal spine. IMPRESSION: 1. The area of the previously seen left renal abscess shows very tiny hypodensity with scarring. 2. Congestive veins in the pelvis suggestive of pelvic congestion syndrome. 3. Large left renal cyst. Reviewed, dictated and finalized at location A. IMPRESSION: 1. The area of the previously seen left renal abscess shows very tiny hypodens ity with scarring. 2. Congestive veins in the pelvis suggestive of pelvic congestion syndrome. 3. Large left renal cyst.
== END 2024-03-08 07:36 | disposition home or self-care (01) ==
PROVIDERS: PCP Family Medicine; Visit Provider Physician Assistant
DX: N15.1 Renal and perinephric abscess (principal); N28.1 Cyst of kidney, acquired
CPT/HCPCS: 74177; Q9967